=== PATIENT | female | born 1970 | race Two or more races ===

== ENCOUNTER 2017-07-13 20:49 | Emergency (ER) | payer SELFPAY ==
[2017-07-13] MEDS ORDERED: FAMOTIDINE 20 MG/2 ML VIAL IVP ONE (21:30)
[2017-07-13] MEDS ORDERED: ONDANSETRON PF 4 MG/2 ML VIAL. IV ONE (21:30)
[2017-07-13 21:35] LABS: BASO # 0.1 x10^3/uL (0.0-0.2); BASO % 1 % (0-3); EOS % 4 % (0-3); HEMATOCRIT 42.5 % (36.0-47.0); HEMOGLOBIN 14.6 g/dL (12.0-15.5); LYMPH # 2.6 x10^3/uL (1.0-4.8); LYMPH % 38 % (24-48); MEAN CORPUSCULAR HEMOGLOBIN 30 pg (25-35); MEAN CORPUSCULAR HGB CONC 34 g/dL (31-37); MEAN CORPUSCULAR VOLUME 89 fL (79-100); MONO % 8 % (0-9); NEUT % 49 % (31-73); PLATELET COUNT 282 x10^3/uL (140-400); RED CELL DISTRIBUTION WIDTH 13.1 % (11.5-14.5); WHITE BLOOD COUNT 6.9 x10^3/uL (4.0-11.0)
[2017-07-13 21:47] LABS: NEG OBC SER NEG; POS OBC SER POS
[2017-07-13 21:48] LABS: CALCIUM 8.6 mg/dL (8.5-10.1); CREATININE 0.8 mg/dL (0.6-1.0); GFR 76.6; POTASSIUM 3.6 mmol/L (3.5-5.1)
[2017-07-13 22:02] LABS: ALBUMIN/GLOBULIN RATIO 1.1 (1.0-1.7); TOTAL BILIRUBIN 0.2 mg/dL (0.2-1.0); TOTAL PROTEIN 7.5 g/dL (6.4-8.2)
[2017-07-13] MEDS ORDERED: LIDO:MAALOX:DONNATAL 1:1:1 15 ML SINGLE DOSE SWSW ONE (22:15)
[2017-07-13] MEDS ORDERED: LOSA1TAB16 PO (22:48)
[2017-07-13] MEDS ORDERED: PHEN37.53 PO (22:49)
--- NOTE | 2017-07-13 22:50 | PHYS DOC ---
Past Medical History Past Medical History: Anxiety, Depression, Hypertension, Other Additional Past Medical Histor: herniated disc, Past Surgical History: Appendectomy, Cholecystectomy Alcohol Use: None Drug Use: None Adult General Chief Complaint Chief Complaint: ABDOMINAL PAIN HPI HPI Patient is a 47 year old female with history of peptic ulcer disease, previous cholecystectomy and appendectomy resents with intermittent epigastric pain 2 days. Symptom onset started several hours after taking naproxen. Pain is described as sharp, burning, rated [id number] in the epigastric region. Pain radiates patient's back. Patient reports mild nausea. Denies vomiting. No bloody stools or dark tarry stools. No diarrhea. Pain is is with eating. Patient has taken omeprazole with limited relief. Patient states she is been treated twice for H. pylori and symptoms feel similar. No fever, chills, vomiting, sweats, chest pain shortness of breath. No other acute symptoms or complaints. Review of Systems Review of Systems Review of symptoms as per history of present illness. All other review symptoms are negative. Current Medications Current Medications Current Medications Medications (Trade) Dose Ordered Sig/Maida Start Time Stop Time Status Last Admin Dose Admin Famotidine (Pepcid) 20 mg 1X ONCE 07/13/17 21:30 07/13/17 21:31 DC 07/13/17 21:51 20 MG Multi-Ingredient Mouthwash/Gargle (Gi Cocktail Single Dose) 30 ml 1X ONCE 07/13/17 22:15 07/13/17 22:16 DC 07/13/17 22:18 30 ML Ondansetron HCl (Zofran) 4 mg 1X ONCE 07/13/17 21:30 07/13/17 21:31 DC 07/13/17 21:50 4 MG Allergies Allergies Allergies Coded Allergies Type Severity Reaction Last Updated Verified Penicillins Allergy Intermediate 06/28/15 Yes Physical Exam Physical Exam Constitutional: Well developed, well nourished, discomfort secondary to pain, non-toxic appearance. [] HENT: Normocephalic, atraumatic, bilateral external ears normal, oropharynx moist, no oral exudates, nose normal. [] Eyes: PERRLA, EOMI, conjunctiva normal, no discharge. [] Neck: Normal range of motion, no tenderness, supple, no stridor. [] Cardiovascular:Heart rate regular rhythm, no murmur [] Lungs & Thorax: Bilateral breath sounds clear to auscultation [] Abdomen: Bowel sounds normal, soft, gastric pain, tenderness, no rebound rigidity or guarding. [] Skin: Warm, dry, no erythema, no rash. [] Back: No tenderness, no CVA tenderness. [] Extremities: No tenderness, no cyanosis, no clubbing, ROM intact, no edema. [] Neurologic: Alert and oriented X 3, normal motor function, normal sensory function, no focal deficits noted. [] Psychologic: Affect normal, judgement normal, mood normal. [] Current Patient Data Lab Values Laboratory Tests Test 07/13/17 21:05 07/13/17 21:30 POC Urine HCG, Qualitative Hcg negative (Negative) White Blood Count 6.9 x10^3/uL (4.0-11.0) Red Blood Count 4.80 x10^6/uL (3.50-5.40) Hemoglobin 14.6 g/dL (12.0-15.5) Hematocrit 42.5 % (36.0-47.0) Mean Corpuscular Volume 89 fL (79-100) Mean Corpuscular Hemoglobin 30 pg (25-35) Mean Corpuscular Hemoglobin Concent 34 g/dL (31-37) Red Cell Distribution Width 13.1 % (11.5-14.5) Platelet Count 282 x10^3/uL (140-400) Neutrophils (%) (Auto) 49 % (31-73) Lymphocytes (%) (Auto) 38 % (24-48) Monocytes (%) (Auto) 8 % (0-9) Eosinophils (%) (Auto) 4 % (0-3) H Basophils (%) (Auto) 1 % (0-3) Neutrophils # (Auto) 3.4 x10^3uL (1.8-7.7) Lymphocytes # (Auto) 2.6 x10^3/uL (1.0-4.8) Monocytes # (Auto) 0.5 x10^3/uL (0.0-1.1) Eosinophils # (Auto) 0.3 x10^3/uL (0.0-0.7) Basophils # (Auto) 0.1 x10^3/uL (0.0-0.2) Sodium Level 141 mmol/L (136-145) Potassium Level 3.6 mmol/L (3.5-5.1) Chloride Level 103 mmol/L (98-107) Carbon Dioxide Level 29 mmol/L (21-32) Anion Gap 9 (6-14) Blood Urea Nitrogen 9 mg/dL (7-20) Creatinine 0.8 mg/dL (0.6-1.0) Estimated GFR (Cockcroft-Gault) 76.6 BUN/Creatinine Ratio 11 (6-20) Glucose Level 80 mg/dL (70-99) Calcium Level 8.6 mg/dL (8.5-10.1) Total Bilirubin 0.2 mg/dL (0.2-1.0) Aspartate Amino Transferase (AST) 25 U/L (15-37) Alanine Aminotransferase (ALT) 50 U/L (14-59) Alkaline Phosphatase 95 U/L (46-116) Total Protein 7.5 g/dL (6.4-8.2) Albumin 4.0 g/dL (3.4-5.0) Albumin/Globulin Ratio 1.1 (1.0-1.7) Lipase 136 U/L (73-393) Serum Test, Qualitative Negative (NEG) Laboratory Tests 07/13/17 21:30 Laboratory Tests 07/13/17 21:30 EKG EKG [] Radiology/Procedures Radiology/Procedures [] Course & Med Decision Making Course & Med Decision Making Pertinent Labs and Imaging studies reviewed. (See chart for details) [Patient's abdomen soft, nonsurgical on serial ED exam. Patient's pain completely resolved with Pepcid Zofran and and GI cocktail. I do suspect gastritis versus peptic ulcer disease. H&H vital signs stable. Patient denies bloody stools. Will treat empirically with close PCP follow-up. Patient instructed to avoid all NSAIDs. Patient verbalizes understanding agreement with discharge plan instructions. Return precautions reviewed.] Dragon Disclaimer Dragon Disclaimer This electronic medical record was generated, in whole or in part, using a voice recognition dictation system. Departure Departure Impression: Primary Impression: Abdominal pain Disposition: HOME, SELF-CARE Condition: GOOD Referrals: UNKNOWN PCP NAME (PCP) Patient Instructions: Gastritis, Adult, [id number] Additional Instructions: Please take Prilosec 20 mg twice daily, start Zantac 150 milligrams twice daily and take Carafate as directed. Avoid all future NSAIDs, and limit caffeine and alcohol. Drink clear liquids only for the next several hours, then gradually increase to bland diet as tolerated. Please follow-up with your primary care physician for reevaluation. If you develop any new or worsening symptoms, please return to the emergency department. TYLER RAE DO Jul 13, 2017 22:50
[2017-07-13 23:54] VITALS: BP 144/76
[2017-07-16] MEDS ORDERED: PANT40TA3 PO ×2 (18:28→18:29)
== END 2017-07-13 23:57 | disposition home or self-care (01) ==
LOC: ER 20:49
DX: R10.13 Epigastric pain (principal); R11.0 Nausea; I10 Essential (primary) hypertension; Z90.49 Acquired absence of other specified parts of digestive tract; Z88.0 Allergy status to penicillin; Z87.11 Personal history of peptic ulcer disease
CPT/HCPCS: 36415; 80053; 81025; 83690; 84703; 85025; 96374; 96375; 99284; J2405; S0028